=== PATIENT | male | born 1950 | race Caucasian/White ===

== ENCOUNTER 2023-08-12 18:59 | Emergency (ER) | payer MEDICARE ==
[2023-08-12] MEDS ORDERED: Diltiazem 50 MG/10 ML SDV IVPUSH ONE (19:06)
[2023-08-12] MEDS: Diltiazem 50 MG/10 ML SDV IVPUSH ONE (19:13)
[2023-08-12] MEDS: Metoprolol Tartrate 50 MG Tab PO ONE (19:23)
[2023-08-12 19:29] LABS: BASOPHILS PERCENT AUTO 0.1 % (0.2-1.2); HEMATOCRIT 15.4 % (40.0-52.0); IMMATURE GRAN ABSOLUTE AUTO 0.01 x10^3/uL (0.00-0.07); LYMPHOCYTES ABSOLUTE AUTO 0.7 x10^3/uL (1.0-4.8); LYMPHOCYTES PERCENT AUTO 10.2 % (25.0-50.0); MEAN CORPUSCULAR HEMOGLOBIN 23.8 pg (26.0-32.0); MEAN CORPUSCULAR HGB CONC 29.2 g/dL (32.0-36.0); MEAN CORPUSCULAR VOLUME 81.5 fL (78.0-93.0); MONOCYTES ABSOLUTE AUTO 0.5 x10^3/uL (0.0-0.8); MONOCYTES PERCENT AUTO 7.4 % (2.0-11.0); NEUTROPHILS ABSOLUTE AUTO 5.8 x10^3/uL (1.8-7.7); NEUTROPHILS PERCENT AUTO 82.2 % (50.0-80.0); PLATELET COUNT,PLT 428 x10^3/uL (130-400); RED BLOOD CELL COUNT 1.89 x10^6/uL (4.5-6.0)
[2023-08-12 19:32] LABS: HEMOGLOBIN 4.5 g/dL (14.0-18.0)
[2023-08-12 19:44] LABS: INR 1.2 (0.9-1.1)
[2023-08-12 19:55] LABS: A/G RATIO 0.94; ALANINE AMINOTRANSFERASE,ALT 16 U/L (16-63); ALBUMIN 3.2 g/dL (3.4-5.0); ALKALINE PHOSPHATASE 31 U/L (46-116); ASPARTATE AMNIOTRANSFERASE,AST 11 U/L (15-37); BILIRUBIN TOTAL 0.5 mg/dL (0.2-1.0); BLOOD UREA NITROGEN,BUN 61 mg/dL (7-18); CALCIUM 9.8 mg/dL (8.5-10.1); CARBON DIOXIDE,CO2 21 mmol/L (21-32); CHLORIDE,CL 103 mmol/L (98-107); CREATININE 2.3 mg/dL (0.70-1.30); GLUCOSE RANDOM 232 mg/dL (70-99); MAGNESIUM 1.8 mg/dL (1.8-2.4); POTASSIUM,K 4.2 mmol/L (3.5-5.1); PROTEIN TOTAL,TP 6.6 g/dL (6.4-8.2); SODIUM,NA 142 mmol/L (136-145); TSH ULTRASENSITIVE 1.335 uIU/mL (0.358-3.74)
[2023-08-12 19:56] LABS: ANION GAP 22.2 mmol/L (5-15); C-REACTIVE PROTEIN < 0.50 mg/dL (<=0.50); ESTIMATED GFR 29 mL/min (>=60)
[2023-08-12] MEDS: Pantoprazole 40 MG Vial IVPUSH ONE (20:13)
[2023-08-12] MEDS: Lactated Ringers 1,000 ML IV STA (20:20)
[2023-08-12 20:36] LABS: LACTIC ACID 5.5 mmol/L (0.4-2.0)
[2023-08-12 20:46] LABS: APPEARANCE,URINE CLEAR (CLEAR); BILIRUBIN,URINE NEGATIVE (NEGATIVE); COLOR,URINE YELLOW (YELLOW); GLUCOSE,URINE NEGATIVE (NEGATIVE); KETONES,URINE NEGATIVE (NEGATIVE); LEUKOCYTE ESTERASE,URINE NEGATIVE (NEGATIVE); NITRITE,URINE NEGATIVE (NEGATIVE); OCCULT BLOOD,URINE NEGATIVE (NEGATIVE); PH,URINE 5.5 (5.0-8.0); PROTEIN,URINE 30 mg/dL (NEGATIVE); UROBILINOGEN,URINE 0.2 EU/dL (0.2)
[2023-08-12 20:48] LABS: BACTERIA,URINE OCCASIONAL /HPF (NOT SEEN); MUCUS,URINE OCCASIONAL /LPF (NOT SEEN); RBC,URINE 0-5 /HPF (NOT SEEN); WBC,URINE 0-5 /HPF (NOT SEEN)
[2023-08-12] MEDS ORDERED: Lactated Ringers 500 ML IV STA (23:11)
[2023-08-12 23:30] VITALS: BP 113/70; PULSE 85
== END 2023-08-12 22:11 | disposition short-term general hospital (02) ==
LOC: VM.ED 18:59
DX: I48.91 Unspecified atrial fibrillation (principal); K92.2 Gastrointestinal hemorrhage, unspecified; I10 Essential (primary) hypertension; E11.9 Type 2 diabetes mellitus without complications; Z79.01 Long term (current) use of anticoagulants
CPT/HCPCS: 36415; 36430; 80053; 81001; 83605; 83735; 84443; 84484; 85025; 85610; 85730; 86140; 86850; 86900; 86901; 86920; 86922; A9270; C9113; J3490; J7120; P9016; 51702; 93010; 96361; 96374; 96375; 99284; 99285-25

== ENCOUNTER 2023-08-26 12:03 | Emergency (ER) | payer MEDICARE ==
[2023-08-26] MEDS ORDERED: Sodium Chloride 0.9% 10 ML Syringe FLUSH PRN (12:28)
[2023-08-26 12:35] LABS: BASOPHILS ABSOLUTE AUTO 0.1 x10^3/uL (0.0-0.2); BASOPHILS PERCENT AUTO 1.5 % (0.2-1.2); EOSINOPHILS ABSOLUTE AUTO 0.1 x10^3/uL (0.0-0.5); EOSINOPHILS PERCENT AUTO 1.8 % (0.0-4.0); HEMATOCRIT 29.5 % (40.0-52.0); HEMOGLOBIN 9.2 g/dL (14.0-18.0); IMMATURE GRAN ABSOLUTE AUTO 0.01 x10^3/uL (0.00-0.07); LYMPHOCYTES ABSOLUTE AUTO 1.4 x10^3/uL (1.0-4.8); LYMPHOCYTES PERCENT AUTO 25.8 % (25.0-50.0); MEAN CORPUSCULAR HEMOGLOBIN 25.4 pg (26.0-32.0); MEAN CORPUSCULAR HGB CONC 31.2 g/dL (32.0-36.0); MEAN CORPUSCULAR VOLUME 81.5 fL (78.0-93.0); MONOCYTES ABSOLUTE AUTO 0.5 x10^3/uL (0.0-0.8); MONOCYTES PERCENT AUTO 8.6 % (2.0-11.0); NEUTROPHILS ABSOLUTE AUTO 3.4 x10^3/uL (1.8-7.7); NEUTROPHILS PERCENT AUTO 62.1 % (50.0-80.0); PLATELET COUNT,PLT 562 x10^3/uL (130-400); RED BLOOD CELL COUNT 3.62 x10^6/uL (4.5-6.0); WHITE BLOOD CELL COUNT,WBC 5.5 x10^3/uL (4.0-10.0)
[2023-08-26 12:54] LABS: A/G RATIO 0.72; ALANINE AMINOTRANSFERASE,ALT 20 U/L (16-63); ALBUMIN 3.1 g/dL (3.4-5.0); ALKALINE PHOSPHATASE 44 U/L (46-116); ASPARTATE AMNIOTRANSFERASE,AST 16 U/L (15-37); BILIRUBIN TOTAL 0.2 mg/dL (0.2-1.0); BLOOD UREA NITROGEN,BUN 31 mg/dL (7-18); CALCIUM 9.2 mg/dL (8.5-10.1); CARBON DIOXIDE,CO2 26 mmol/L (21-32); CHLORIDE,CL 105 mmol/L (98-107); CREATININE 1.6 mg/dL (0.70-1.30); GLUCOSE RANDOM 135 mg/dL (70-99); POTASSIUM,K 4.4 mmol/L (3.5-5.1); PROTEIN TOTAL,TP 7.4 g/dL (6.4-8.2); SODIUM,NA 141 mmol/L (136-145)
[2023-08-26 12:57] LABS: ANION GAP 14.4 mmol/L (5-15); ESTIMATED GFR 45 mL/min (>=60)
[2023-08-26] MEDS ORDERED: Amiodarone 200 MG Tab PO ONE (12:58)
[2023-08-26] MEDS: Amiodarone 150 MG/3 ML SDV IVPUSH ONE (13:09)
[2023-08-26] MEDS: Sodium Chloride 0.9% 1,000 ML IV ONE (13:14)
[2023-08-26] MEDS: Amiodarone 200 MG Tab PO ONE (13:55)
[2023-08-26 14:32] VITALS: BP 111/66; PULSE 89
== END 2023-08-26 14:06 | disposition home or self-care (01) ==
LOC: VM.ED 12:03
DX: I48.91 Unspecified atrial fibrillation (principal); I10 Essential (primary) hypertension; E11.9 Type 2 diabetes mellitus without complications; E78.00 Pure hypercholesterolemia, unspecified; Z79.01 Long term (current) use of anticoagulants; Z79.899 Other long term (current) drug therapy; Z79.4 Long term (current) use of insulin; Z88.8 Allergy status to other drugs, medicaments and biological substances
CPT/HCPCS: 80053; 84484; 85025; 93010; 96361; 96374; 99284; 99284-25; A9270-GY; J0282; J7030

== ENCOUNTER 2025-03-27 17:26 | Emergency (ER) | payer MEDICARE ==
[2025-03-27] MEDS ORDERED: Sodium Chloride 0.9% 10 ML Syringe FLUSH PRN (18:11)
[2025-03-27] MEDS: Lactated Ringers 1,000 ML IV ONE (18:18)
[2025-03-27 18:22] LABS: BASOPHILS ABSOLUTE AUTO 0.1 x10^3/uL (0.0-0.2); BASOPHILS PERCENT AUTO 0.7 % (0.2-1.2); EOSINOPHILS ABSOLUTE AUTO 0.1 x10^3/uL (0.0-0.5); EOSINOPHILS PERCENT AUTO 1.3 % (0.0-4.0); IMMATURE GRAN ABSOLUTE AUTO 0.01 x10^3/uL (0.00-0.07); IMMATURE GRAN PERCENT AUTO 0.10 % (0.00-0.43); LYMPHOCYTES ABSOLUTE AUTO 1.9 x10^3/uL (1.0-4.8); LYMPHOCYTES PERCENT AUTO 28.3 % (25.0-50.0); MONOCYTES ABSOLUTE AUTO 0.5 x10^3/uL (0.0-0.8); MONOCYTES PERCENT AUTO 7.5 % (2.0-11.0); NEUTROPHILS ABSOLUTE AUTO 4.2 x10^3/uL (1.8-7.7); NEUTROPHILS PERCENT AUTO 62.1 % (50.0-80.0); PLATELET COUNT,PLT 315 x10^3/uL (130-400); RED BLOOD CELL COUNT 3.81 x10^6/uL (4.5-6.0); WHITE BLOOD CELL COUNT,WBC 6.8 x10^3/uL (4.0-10.0)
[2025-03-27 18:33] LABS: INR 1.0 (0.9-1.1); PTT,PARTIAL THROMBOPLSTIN TIME 27.2 SEC (24.3-33.4)
[2025-03-27 18:40] LABS: A/G RATIO 0.89; ALANINE AMINOTRANSFERASE,ALT 31 U/L (16-63); ASPARTATE AMNIOTRANSFERASE,AST 26 U/L (15-37); BILIRUBIN TOTAL 0.3 mg/dL (0.2-1.0); BLOOD UREA NITROGEN,BUN 35 mg/dL (7-18); CARBON DIOXIDE,CO2 25 mmol/L (21-32); CHLORIDE,CL 106 mmol/L (98-107); CREATINE KINASE,CK 92 U/L (39-308); CREATININE 1.7 mg/dL (0.70-1.30); GLUCOSE RANDOM 134 mg/dL (70-99); POTASSIUM,K 4.4 mmol/L (3.5-5.1); PROTEIN TOTAL,TP 6.8 g/dL (6.4-8.2); SODIUM,NA 138 mmol/L (136-145)
[2025-03-27 18:46] LABS: ESTIMATED GFR 42 mL/min (>=60)
[2025-03-27 19:30] LABS: APPEARANCE,URINE CLEAR (CLEAR); GLUCOSE,URINE NEGATIVE (NEGATIVE); OCCULT BLOOD,URINE TRACE-INTACT (NEGATIVE)
[2025-03-27 20:45] VITALS: BP 150/86; PULSE 81
== END 2025-03-27 20:36 | disposition home or self-care (01) ==
LOC: VM.ED 17:26
DX: E86.0 Dehydration (principal); I12.9 Hypertensive chronic kidney disease with stage 1 through stage 4 chronic kidney disease, or unspecified chronic kidney disease; I48.91 Unspecified atrial fibrillation; E78.00 Pure hypercholesterolemia, unspecified; E11.9 Type 2 diabetes mellitus without complications; N18.9 Chronic kidney disease, unspecified; Z79.899 Other long term (current) drug therapy; Z79.01 Long term (current) use of anticoagulants; Z88.8 Allergy status to other drugs, medicaments and biological substances; Z79.4 Long term (current) use of insulin
CPT/HCPCS: 36415; 80053; 81001; 82550; 82728; 83735; 84484; 85025; 85610; 85730; 93005; 93010; 99284; J7120